=== PATIENT | female | born 1965 | race Two or more races ===

== ENCOUNTER 2025-03-22 00:56 | Emergency (ER) | payer MEDICAID, SELFPAY ==
--- NOTE | 2025-03-22 02:06 | PC.NURSE ---
CALLED PT NO ANSWER
--- NOTE | 2025-03-22 03:16 | PC.NURSE ---
CALLED PATIENT IN THE LOBBY AND OUTSIDE, NO ANSWER RECEIVED.
== END 2025-03-22 05:51 | disposition left against medical advice (07) ==
LOC: SERX 03:28
PROVIDERS: Emergency Provider Emergency Medicine
DX: Z53.21 Procedure and treatment not carried out due to patient leaving prior to being seen by health care provider (principal)